=== PATIENT | male | born 1975 | race Two or more races ===

== ENCOUNTER 2021-12-16 04:36 | Emergency (ER) | payer OTHER ==
[~2021-12-16] VITALS: Ht 167.6 cm; Wt 72.6 kg
== END 2021-12-16 18:39 | disposition home or self-care (01) ==
LOC: ER 04:36
DX: F10.929 Alcohol use, unspecified with intoxication, unspecified (principal); F19.90 Other psychoactive substance use, unspecified, uncomplicated; Z72.89 Other problems related to lifestyle

== ENCOUNTER 2021-12-23 16:05 | Emergency (ER) | payer OTHER ==
[~2021-12-23] VITALS: Ht 180.3 cm; Wt 86.2 kg
== END 2021-12-23 20:33 | disposition home or self-care (01) ==
LOC: ER 16:05
DX: R60.9 Edema, unspecified (principal); E86.0 Dehydration; Z20.822 Contact with and (suspected) exposure to COVID-19; I10 Essential (primary) hypertension

== ENCOUNTER 2022-10-22 15:55 | Emergency (ER) | payer OTHER ==
[~2022-10-22] VITALS: Ht 180.3 cm; Wt 74.4 kg
[2022-10-22] MEDS ORDERED: PROAIR RESPICL90 MCG IH (21:44)
== END 2022-10-22 21:49 | disposition home or self-care (01) ==
LOC: ER 15:55
DX: R05.8 Other specified cough (principal); J45.998 Other asthma; Z88.2 Allergy status to sulfonamides